=== PATIENT | female | born 1995 | race American Indian/Alaskan Native ===

== ENCOUNTER 2020-05-31 09:22 | Emergency (ER) | payer MEDICAID ==
[2020-05-31] MEDS ORDERED: ACETAMINOPHEN 500 MG TAB PO ONE (11:54)
--- NOTE | 2020-05-31 11:54 | Emergency Department Report ---
ED General Adult HPI - General Chief complaint: Back Pain/Injury Stated complaint: BACK PAIN Time Seen by Provider: 05/31/20 11:08 Source: patient Mode of arrival: Ambulatory Limitations: No Limitations - History of Present Illness Initial comments: 25-year-old -Beninese female presents to the emergency room complaining of a knot between her gluteal cleft x1 week. Patient states she has been taking Tylenol Cassidy aspirin using wintergreen today then to help with her discomfort. Patient states that she works for [employer] and not sure if she pulled her back. Patient states it is difficult to sleep. Patient also question if the medication I give for her will be safe for . Patient informed me that she is but has no care. Patient reports her last menstrual period was sometime in January. Patient denies any abdominal pain no vaginal bleeding. Patient states that she has not even had a ultrasound. She states that the OB she is supposed to 10 to is in [place] but every time she goes the doctor is not available. Patient is 1. - Related Data Previous Rx's Medication Instructions Recorded Last Taken Type Ibuprofen [Motrin 800 MG tab] 800 mg PO Q8HR PRN #15 tablet 05/31/20 Unknown Rx Sulfamethoxazole/Trimethoprim 1 each PO BID 10 Days #20 tablet 05/31/20 Unknown Rx [Bactrim DS TAB] Allergies Allergy/AdvReac Type Severity Reaction Status Date / Time pollen extracts AdvReac Unknown Verified 05/31/20 09:33 ED Review of Systems ROS: Stated complaint: BACK PAIN Other details as noted in HPI Comment: All other systems reviewed and negative ED Past Medical Hx - Past Medical History Previous Medical History?: No - Surgical History Past Surgical History?: No - Social History Smoking Status: Never Smoker Substance Use Type: None - Medications Home Medications: Home Medications Medication Instructions Recorded Confirmed Last Taken Type Ibuprofen [Motrin 800 MG tab] 800 mg PO Q8HR PRN #15 tablet 05/31/20 Unknown Rx Sulfamethoxazole/Trimethoprim 1 each PO BID 10 Days #20 tablet 05/31/20 Unknown Rx [Bactrim DS TAB] ED Physical Exam - General Limitations: No Limitations General appearance: alert, in no apparent distress - Head Head exam: Present: atraumatic, normocephalic - Eye Eye exam: Present: normal appearance - ENT ENT exam: Present: normal exam, normal external ear exam - Neck Neck exam: Present: normal inspection - Respiratory Respiratory exam: Present: normal lung sounds bilaterally. Absent: chest wall tenderness, accessory muscle use - Cardiovascular Cardiovascular Exam: Present: regular rate - GI/Abdominal GI/Abdominal exam: Present: soft, distended, other. Absent: tenderness, guarding, rebound - Extremities Exam Extremities exam: Present: normal inspection, full ROM - Back Exam Back exam: Present: full ROM, tenderness - Neurological Exam Neurological exam: Present: alert, oriented X3 - Psychiatric Psychiatric exam: Present: normal affect, normal mood - Skin Skin exam: Present: erythema - Expanded Skin Exam Expanded Type of lesion: Present: rash Distribution of rash: other (Gluteal cleft right and left) Description of rash: Present: tenderness, erythematous, swelling, indurated. Absent: discharge, fluctuant ED Course Vital Signs 05/31/20 05/31/20 09:31 14:07 Temperature 99 F Pulse Rate 97 H Respiratory 20 18 Rate Blood Pressure 126/64 O2 Sat by Pulse 100 100 Oximetry ED Medical Decision Making - Lab Data Result diagrams: 05/31/20 13:51 05/31/20 13:51 Laboratory Tests 05/31/20 05/31/20 05/31/20 13:51 13:51 13:51 WBC 13.6 H RBC 4.04 Hgb 11.6 Hct 34.6 MCV 86 MCH 29 MCHC 34 RDW 13.6 Plt Count 382 Lymph % (Auto) 5.7 L [place] % (Auto) 7.2 Eos % (Auto) 0.4 Baso % (Auto) 0.2 Lymph # (Auto) 0.8 L [place] # (Auto) 1.0 H Eos # (Auto) 0.0 Baso # (Auto) 0.0 Seg Neutrophils % 86.5 H Seg Neutrophils # 11.8 H Sodium 133 L Potassium 4.1 Chloride 98.2 Carbon Dioxide 24 Anion Gap 15 BUN 7 Creatinine 0.8 Estimated GFR > 60 BUN/Creatinine Ratio 9 Glucose 81 Calcium 8.6 Total Bilirubin 0.40 AST 8 ALT 7 Alkaline Phosphatase 73 Total Protein 7.2 Albumin 3.4 L Albumin/Globulin Ratio 0.9 HCG, Quant < 2 - Radiology Data Radiology results: report reviewed [facility] [address] [place] [address] Ultrasound Report Signed Patient: CECY WICK MR#: [id number] : 1995 Acct:[id number] Age/Sex: 25 / F ADM Date: 05/31/20 Loc: ED Attending Dr: Ordering Physician: ALMA LANDRUM Date of Service: 05/31/20 Procedure(s): US OB >= 14 wk fetus add gest Accession Number(s): [id number] cc: ALMA LANDRUM US OB >= 14 wk fetus add gest INDICATION / CLINICAL INFORMATION: Greater than 14 weeks with no ca. COMPARISON: None available. FINDINGS: There is no evidence of an intrauterine . The uterus is normal in size and appearance. The endometrium measures 4 mm. Both ovaries are unremarkable in appearance. No free fluid is seen in the pelvis. IMPRESSION: No intrauterine identified. No abnormality is seen on this exam Signer Name: Keon Burgos MD FACR Signed: 05/31/2020 1:17 PM Workstation Name: [id number] Transcribed By: MS Dictated By: Keon Burgos MD Electronically Authenticated By: Keon Burgos MD Signed Date/Time: 05/31/201316 DD/ 15 TD/TT: - Medical Decision Making 25-year-old -Beninese female presents to the emergency room complaining of a knot between her gluteal cleft x1 week. Patient states she has been taking Tylenol Cassidy aspirin using wintergreen today then to help with her discomfort. Patient states that she works for [employer] and not sure if she pulled her back. Patient states it is difficult to sleep. Patient also question if the medication I give for her will be safe for . Patient informed me that she is but has no care. Patient reports her last menstrual period was sometime in January. Patient denies any abdominal pain no vaginal bleeding. Patient states that she has not even had a ultrasound. She states that the OB she is supposed to 10 to is in [place] but every time she goes the doctor is not available. Patient is 1. Basic labs were ordered for patient. Ultrasound greater than 14 weeks have been ordered. Acetaminophen 1000 mg have been ordered for pain management. Critical care attestation.: If time is entered above; I have spent that time in minutes in the direct care of this critically ill patient, excluding procedure time. ED Disposition Clinical Impression: Negative test, Cellulitis and abscess of buttock, Lower back pain Disposition: - TO HOME OR SELFCARE Is pt being admited?: No Does the pt Need Aspirin: No Condition: Stable Instructions: Cellulitis, Adult, Acute Back Pain, Adult Additional Instructions: You are not . Ultrasound shows no . Negative test. Complete antibiotics Tylenol ibuprofen as needed for pain. Prescriptions: Sulfamethoxazole/Trimethoprim [Bactrim DS TAB] 1 each PO BID 10 Days #20 tablet Ibuprofen [Motrin 800 MG tab] 800 mg PO Q8HR PRN #15 tablet PRN Reason: Pain , Severe (7-10) Referrals: PRIMARY CARE, [Primary Care Provider] - 3-5 Days [facility] [Provider Group] - 3-5 Days
[2020-05-31 14:13] LABS: Basophils % (Auto) 0.2 % (0.0-1.8); Eosinophils % (Auto) 0.4 % (0.0-4.3); Hematocrit 34.6 % (30.3-42.9); Hemoglobin 11.6 gm/dl (10.1-14.3); Lymphocytes # (Auto) 0.8 K/mm3 (1.2-5.4); Lymphocytes % (Auto) 5.7 % (13.4-35.0); Mean Corpuscular HGB Conc 34 % (30-34); Mean Corpuscular Volume 86 fl (79-97); Monocytes % (Auto) 7.2 % (0.0-7.3); Platelet Count 382 K/mm3 (140-440); Red Blood Count 4.04 M/mm3 (3.65-5.03); Red Cell Distribution Width 13.6 % (13.2-15.2)
[2020-05-31 14:31] LABS: Alanine Aminotransferase 7 units/L (7-56); Albumin 3.4 g/dL (3.9-5); BUN/Creatinine Ratio 9; Blood Urea Nitrogen 7 mg/dL (7-17); Calcium 8.6 mg/dL (8.4-10.2); Hemolysis Index 0
[2020-05-31 15:58] VITALS: BP 101/38
--- NOTE | 2020-06-01 08:06 | Ultrasound Report ---
US OB >= 14 wk fetus add gest INDICATION / CLINICAL INFORMATION: Greater than 14 weeks with no ca. COMPARISON: None available. FINDINGS: There is no evidence of an intrauterine . The uterus is normal in size and appearance. The e ndometrium measures 4 mm. Both ovaries are unremarkable in appearance. No free fluid is seen in the p devora. IMPRESSION: No intrauterine identified. No abnormality is seen on this exam Signer Name: Keon Burgos MD FACR Signed: 05/31/2020 1:17 PM Workstation Name: [id number]
== END 2020-05-31 16:00 | disposition home or self-care (01) ==
LOC: ED 09:22
DX: L03.317 Cellulitis of buttock (principal); M54.5 Low back pain; Z32.02 Encounter for pregnancy test, result negative; Z79.1 Long term (current) use of non-steroidal anti-inflammatories (NSAID); Z79.899 Other long term (current) drug therapy; Z88.8 Allergy status to other drugs, medicaments and biological substances
CPT/HCPCS: 36415; 76810; 76817; 76830; 80053; 84702; 85025

== ENCOUNTER 2020-11-13 16:37 | Emergency (ER) | payer MEDICAID ==
--- NOTE | 2020-11-13 17:18 | Emergency Department Report ---
ED Female HPI - General Chief complaint: Vaginal Bleeding Stated complaint: 8 WKS PREG Time Seen by Provider: 11/13/20 17:05 Source: patient Mode of arrival: Ambulatory Limitations: No Limitations - History of Present Illness Initial comments: Patient presents secondary to vaginal bleeding. She is 8 weeks gestation. She is a G1, P0. She noticed that when she went to the bathroom and wiped, she had blood on the tissue. There is no pain or cramping associated with this. There is no bleeding from other sites. She has not had an ultrasound for this . 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 Because the spotting, she came here for evaluation. - Related Data Previous Rx's Medication Instructions Recorded Last Taken Type Ibuprofen [Motrin 800 MG tab] 800 mg PO Q8HR PRN #15 tablet 05/31/20 Unknown Rx Sulfamethoxazole/Trimethoprim 1 each PO BID 10 Days #20 tablet 05/31/20 Unknown Rx [Bactrim DS TAB] Allergies Allergy/AdvReac Type Severity Reaction Status Date / Time pollen extracts AdvReac Unknown Verified 05/31/20 09:33 ED Review of Systems ROS: Stated complaint: 8 WKS PREG Other details as noted in HPI Comment: All other systems reviewed and negative Constitutional: denies: fever Eyes: denies: vision change ENT: denies: throat pain Respiratory: denies: cough Cardiovascular: denies: chest pain Endocrine: denies: unexplained weight loss Gastrointestinal: denies: abdominal pain Genitourinary: as per HPI. denies: hematuria Musculoskeletal: denies: back pain Skin: denies: rash Neurological: denies: headache Hematological/Lymphatic: denies: easy bruising ED Past Medical Hx - Past Medical History Previous Medical History?: No - Surgical History Past Surgical History?: No - Family History Family history: no significant - Social History Smoking Status: Never Smoker Substance Use Type: None - Medications Home Medications: Home Medications Medication Instructions Recorded Confirmed Last Taken Type Ibuprofen [Motrin 800 MG tab] 800 mg PO Q8HR PRN #15 tablet 05/31/20 Unknown Rx Sulfamethoxazole/Trimethoprim 1 each PO BID 10 Days #20 tablet 05/31/20 Unknown Rx [Bactrim DS TAB] ED Physical Exam - General Limitations: No Limitations, Other (Pulse ox is noted and normal she is not hypoxic.) General appearance: alert, in no apparent distress - Head Head exam: Present: atraumatic, normocephalic, normal inspection - Eye Eye exam: Present: normal appearance, EOMI. Absent: scleral icterus - ENT ENT exam: Present: normal exam, normal orophraynx, normal external ear exam - Neck Neck exam: Present: normal inspection. Absent: meningismus - Respiratory Respiratory exam: Present: normal lung sounds bilaterally. Absent: respiratory distress - Cardiovascular Cardiovascular Exam: Present: regular rate, normal rhythm - GI/Abdominal GI/Abdominal exam: Present: soft. Absent: distended, tenderness - Extremities Exam Extremities exam: Present: normal capillary refill. Absent: pedal edema - Back Exam Back exam: Absent: CVA tenderness (R), CVA tenderness (L) - Neurological Exam Neurological exam: Present: alert, oriented X3, CN II-XII intact, normal gait. Absent: motor sensory deficit - Psychiatric Psychiatric exam: Present: normal affect, normal mood - Skin Skin exam: Present: warm, dry ED Course Vital Signs 11/13/20 16:49 Temperature 99 F Pulse Rate 100 H Respiratory 16 Rate Blood Pressure 114/63 [Left] O2 Sat by Pulse 100 Oximetry - Reevaluation(s) Reevaluation #1: 11/13/20 17:18 Labs and ultrasound were ordered Reevaluation #2: 11/13/20 20:54 Ultrasound was noted and the patient was discharged. ED Medical Decision Making - Lab Data Result diagrams: 11/13/20 17:33 - Radiology Data Radiology results: report reviewed - Medical Decision Making Patient presented with first trimester bleeding. There was no evidence of ectopic. She is not anemic. She is not hypotensive. Ultrasound has been completed. She does not require RhoGam. Patient was treated symptomatically at this time and referred to her middle school football coach. We have discussed pelvic rest. Critical Care Time: No Critical care attestation.: If time is entered above; I have spent that time in minutes in the direct care of this critically ill patient, excluding procedure time. ED Disposition Clinical Impression: Vaginal bleeding before 22 weeks gestation Disposition: HOME / SELF CARE / HOMELESS Is pt being admited?: No Condition: Stable Instructions: Vaginal Bleeding During , First Trimester Additional Instructions: Rest at home. Drink plenty of water. Return for problems. Do not introduce anything into the vagina until you have seen your middle school football coach. Referrals: PRIMARY CARE, [Referring] - 3-5 Days SIOBHAN HARKINS MD [Staff Physician] - 3-5 Days
[2020-11-13 18:18] LABS: Hematocrit 34.5 % (30.3-42.9); Hemoglobin 11.7 gm/dl (10.1-14.3); Mean Corpuscular HGB Conc 34 % (30-34); Mean Corpuscular Volume 86 fl (79-97); Platelet Count 432 K/mm3 (140-440); Red Blood Count 4.01 M/mm3 (3.65-5.03); Red Cell Distribution Width 14.5 % (13.2-15.2)
--- NOTE | 2020-11-13 20:26 | Ultrasound Report ---
ULTRASOUND OBSTETRIC INDICATION / CLINICAL INFORMATION: bleeding. Clinical Gestational Age (GA) in weeks, days: 7, 6 TECHNIQUE: Transabdominal. COMPARISON: None available. FINDINGS: GESTATIONAL SAC: Well-defined oval shape and intrauterine in location. YOLK SAC: No significant abnormality. EMBRYO/FETUS: No significant abnormality. - [place]-Rump Length = 3.4 cm = 8, 4 weeks, days - Heart Rate, beats per minute (if present) = 180 ADNEXA: Nonvisualization of the left ovary. The right ovary is unremarkable. FREE FLUID: None. ADDITIONAL FINDINGS: None. IMPRESSION: 1. Single, living intrauterine with estimated sonographic age of 8, 0 weeks, days. h eart tones are measured at 180 bpm. Signer Name: Jarad Medrano DO Signed: 11/13/2020 8:22 PM Workstation Name: [id number]
[2020-11-13 21:04] VITALS: BP 120/80
== END 2020-11-13 21:05 | disposition home or self-care (01) ==
LOC: ED 16:37
DX: O20.9 Hemorrhage in early pregnancy, unspecified (principal); Z3A.08 8 weeks gestation of pregnancy
CPT/HCPCS: 36415; 76801; 85027; 85461; 86850; 86900; 86901; 99284

== ENCOUNTER 2021-01-29 17:22 | Emergency (ER) | payer MEDICAID ==
--- NOTE | 2021-01-29 18:12 | Emergency Department Report ---
ED Abdominal Pain HPI - General Chief Complaint: Abdominal Pain Stated Complaint: ABD PAIN Time Seen by Provider: 01/29/21 18:06 Source: patient Mode of arrival: Ambulatory Limitations: No Limitations - History of Present Illness Initial Comments: Patient is a 26-year-old female presents emergency room complaints of lower abdominal pain that began 2 days ago. She reports that she is approximately 19 weeks . She states her [employer] group is in [place] and is associated with [place]. She denies any fever, nausea, vomiting, diarrhea, urinary symptoms, vaginal discharge, vaginal bleeding, gush of fluids. She states this is her first . No medication allergies. - Related Data Previous Rx's Medication Instructions Recorded Last Taken Type Ibuprofen [Motrin 800 MG tab] 800 mg PO Q8HR PRN #15 tablet 05/31/20 Unknown Rx Sulfamethoxazole/Trimethoprim 1 each PO BID 10 Days #20 tablet 05/31/20 Unknown Rx [Bactrim DS TAB] Acetaminophen [Tylenol] 650 mg PO Q8HR PRN #20 capsule 01/29/21 Unknown Rx cephALEXin [Keflex] 500 mg PO BID 7 Days #14 cap 01/29/21 Unknown Rx Allergies Allergy/AdvReac Type Severity Reaction Status Date / Time pollen extracts AdvReac Unknown Verified 05/31/20 09:33 ED Review of Systems ROS: Stated complaint: ABD PAIN Other details as noted in HPI Comment: All other systems reviewed and negative ED Past Medical Hx - Past Medical History Previous Medical History?: No - Surgical History Past Surgical History?: No - Social History Smoking Status: Never Smoker Substance Use Type: None - Medications Home Medications: Home Medications Medication Instructions Recorded Confirmed Last Taken Type Ibuprofen [Motrin 800 MG tab] 800 mg PO Q8HR PRN #15 tablet 05/31/20 Unknown Rx Sulfamethoxazole/Trimethoprim 1 each PO BID 10 Days #20 tablet 05/31/20 Unknown Rx [Bactrim DS TAB] Acetaminophen [Tylenol] 650 mg PO Q8HR PRN #20 capsule 01/29/21 Unknown Rx cephALEXin [Keflex] 500 mg PO BID 7 Days #14 cap 01/29/21 Unknown Rx ED Physical Exam - General Limitations: No Limitations General appearance: alert, in no apparent distress - Head Head exam: Present: atraumatic, normocephalic - Eye Eye exam: Present: normal appearance - ENT ENT exam: Present: mucous membranes moist - Respiratory Respiratory exam: Present: normal lung sounds bilaterally. Absent: respiratory distress, wheezes, rales, rhonchi, stridor, chest wall tenderness, accessory muscle use, decreased breath sounds, prolonged expiratory - Cardiovascular Cardiovascular Exam: Present: regular rate, normal rhythm, normal heart sounds. Absent: systolic murmur, diastolic murmur, rubs, gallop - GI/Abdominal GI/Abdominal exam: Present: soft, normal bowel sounds. Absent: distended, tenderness, guarding, rebound, rigid - Neurological Exam Neurological exam: Present: alert, oriented X3 - Psychiatric Psychiatric exam: Present: normal affect, normal mood - Skin Skin exam: Present: warm, dry, intact ED Course Vital Signs 01/29/21 01/29/21 17:27 20:40 Temperature 98.5 F Pulse Rate 96 H 82 Respiratory 20 16 Rate Blood Pressure 102/57 114/57 O2 Sat by Pulse 97 100 Oximetry ED Medical Decision Making - Lab Data Result diagrams: 01/29/21 19:00 01/29/21 19:00 Lab Results 01/29/21 01/29/21 01/29/21 Range/Units 18:19 19:00 19:00 WBC 8.7 (4.5-11.0) K/mm3 RBC 3.67 (3.65-5.03) M/mm3 Hgb 10.4 (10.1-14.3) gm/dl Hct 32.4 (30.3-42.9) % MCV 88 (79-97) fl MCH 28 (28-32) pg MCHC 32 (30-34) % RDW 14.3 (13.2-15.2) % Plt Count 386 (140-440) K/mm3 Lymph % (Auto) 20.0 (13.4-35.0) % [place] % (Auto) 5.5 (0.0-7.3) % Eos % (Auto) 1.4 (0.0-4.3) % Baso % (Auto) 0.3 (0.0-1.8) % Lymph # (Auto) 1.7 (1.2-5.4) K/mm3 [place] # (Auto) 0.5 (0.0-0.8) K/mm3 Eos # (Auto) 0.1 (0.0-0.4) K/mm3 Baso # (Auto) 0.0 (0.0-0.1) K/mm3 Seg Neutrophils % 72.8 H (40.0-70.0) % Seg Neutrophils # 6.3 (1.8-7.7) K/mm3 Sodium 137 (137-145) mmol/L Potassium 4.2 (3.6-5.0) mmol/L Chloride 101.8 (98-107) mmol/L Carbon Dioxide 22 (22-30) mmol/L Anion Gap 17 mmol/L BUN 6 L (7-17) mg/dL Creatinine 0.5 L (0.6-1.2) mg/dL Estimated GFR > 60 ml/min BUN/Creatinine Ratio 12 % Glucose 80 (65-100) mg/dL Calcium 8.9 (8.4-10.2) mg/dL Total Bilirubin < 0.20 (0.1-1.2) mg/dL AST 24 (5-40) units/L ALT 42 (7-56) units/L Alkaline Phosphatase 74 (35-129) units/L Total Protein 6.4 (6.3-8.2) g/dL Albumin 3.8 L (3.9-5) g/dL Albumin/Globulin Ratio 1.5 % HCG, Quant (0-4) mIU/mL Urine Color Straw (Yellow) Urine Turbidity Clear (Clear) Urine pH 6.0 (5.0-7.0) Ur Specific [place] 1.004 (1.003-1.030) Urine Protein <15 mg/dl (Negative) mg/dL Urine Glucose (UA) Neg (Negative) mg/dL Urine Ketones Neg (Negative) mg/dL Urine Blood Neg (Negative) Urine Nitrite Neg (Negative) Urine Bilirubin Neg (Negative) Urine Urobilinogen < 2.0 (<2.0) mg/dL Ur Leukocyte Esterase Mod (Negative) Urine WBC (Auto) 12.0 H (0.0-6.0) /HPF Urine RBC (Auto) < 1.0 (0.0-6.0) /HPF U Epithel Cells (Auto) 5.0 (0-13.0) /HPF Urine Yeast (Budding) Few /HPF 01/29/ Range/Units 19:00 WBC (4.5-11.0) K/mm3 RBC (3.65-5.03) M/mm3 Hgb (10.1-14.3) gm/dl Hct (30.3-42.9) % MCV (79-97) fl MCH (28-32) pg MCHC (30-34) % RDW (13.2-15.2) % Plt Count (140-440) K/mm3 Lymph % (Auto) (13.4-35.0) % [place] % (Auto) (0.0-7.3) % Eos % (Auto) (0.0-4.3) % Baso % (Auto) (0.0-1.8) % Lymph # (Auto) (1.2-5.4) K/mm3 [place] # (Auto) (0.0-0.8) K/mm3 Eos # (Auto) (0.0-0.4) K/mm3 Baso # (Auto) (0.0-0.1) K/mm3 Seg Neutrophils % (40.0-70.0) % Seg Neutrophils # (1.8-7.7) K/mm3 Sodium (137-145) mmol/L Potassium (3.6-5.0) mmol/L Chloride (98-107) mmol/L Carbon Dioxide (22-30) mmol/L Anion Gap mmol/L BUN (7-17) mg/dL Creatinine (0.6-1.2) mg/dL Estimated GFR ml/min BUN/Creatinine Ratio % Glucose (65-100) mg/dL Calcium (8.4-10.2) mg/dL Total Bilirubin (0.1-1.2) mg/dL AST (5-40) units/L ALT (7-56) units/L Alkaline Phosphatase (35-129) units/L Total Protein (6.3-8.2) g/dL Albumin (3.9-5) g/dL Albumin/Globulin Ratio % HCG, Quant 27558 H (0-4) mIU/mL Urine Color (Yellow) Urine Turbidity (Clear) Urine pH (5.0-7.0) Ur Specific [place] (1.003-1.030) Urine Protein (Negative) mg/dL Urine Glucose (UA) (Negative) mg/dL Urine Ketones (Negative) mg/dL Urine Blood (Negative) Urine Nitrite (Negative) Urine Bilirubin (Negative) Urine Urobilinogen (<2.0) mg/dL Ur Leukocyte Esterase (Negative) Urine WBC (Auto) (0.0-6.0) /HPF Urine RBC (Auto) (0.0-6.0) /HPF U Epithel Cells (Auto) (0-13.0) /HPF Urine Yeast (Budding) /HPF - Radiology Data Radiology results: report reviewed Ordering Physician: ALMA WILEY Date of Service: 01/29/21 Procedure(s): US OB >= 14 weeks Fetus Accession Number(s): [id number] cc: ALMA WILEY ULTRASOUND OBSTETRIC INDICATION / CLINICAL INFORMATION: abd pain, . TECHNIQUE: Transabdominal. COMPARISON: 11/13/2020 FINDINGS: There is a single intrauterine . Biparietal Diameter = 4.59 cm = 19.6 weeks.days Head Circumference = 16.82 cm = 19.3 weeks.days Abdominal Circumference = 10.10 cm = 16.1 weeks.days Femur Length = 2.83 cm = 18.5 weeks.days Average Ultrasound Age (AUA) = 18.4 weeks.days Heart Rate: 155 beats per minute. Estimated Weight in grams (if calculated): 202 Estimated Weight Growth Percentile (if calculated): 3 Position: breech. Cervix: closed. Length in cm (if measured): 2.4 Placenta: maternal right and free of the os. Amniotic Fluid Volume: normal Maternal Adnexa: No significant abnormality. IMPRESSION: 1. Single, living intrauterine with estimated sonographic age of 18.4 weeks.days 2. No significant sonographic abnormality. Signer Name: Poncho Deluca MD Signed: 01/29/2021 8:04 PM Workstation Name: [id number] Transcribed By: ARIANA Dictated By: Poncho Deluca MD Electronically Authenticated By: Poncho Deluca MD Signed Date/Time: 01/29/212003 DD/ 01 TD/TT: - Medical Decision Making Patient is a 26-year-old female presents emergency room complaints of lower abdominal pain that began 2 days ago. She reports that she is approximately 19 weeks . She states her [employer] group is in [place] and is associated with [place]. She denies any fever, nausea, vomiting, diarrhea, urinary symptoms, vaginal discharge, vaginal bleeding, gush of fluids. She states this is her first . No medication allergies. Vitals are normal. No abdominal tenderness [place] [address], otherwise labs are stable. UA shows mild UTI. OB ultrasound: 1. Single, living intrauterine with estimated sonographic age of 18.4 weeks.days 2. No significant sonographic abnormality. Discussed all findings with patient. Patient reports that Tylenol improved her pain and she is feeling much better and ready to go home. Discussed the importance of [employer] follow-up. Advised patient Please take medication as prescribed. Increase your water intake. Please practice pelvic rest. Please continue taking her vitamin. Follow-up with [employer]. Return to emergency room for any new or worsening symptoms. Critical care attestation.: If time is entered above; I have spent that time in minutes in the direct care of this critically ill patient, excluding procedure time. ED Disposition Clinical Impression: Abdominal pain in Qualifiers: Trimester: second trimester Qualified Code(s): O26.892 - Other specified related conditions, second trimester UTI (urinary tract infection) Qualifiers: Urinary tract infection type: acute cystitis Hematuria presence: without hematuria Qualified Code(s): N30.00 - Acute cystitis without hematuria Disposition: HOME / SELF CARE / HOMELESS Is pt being admited?: No Does the pt Need Aspirin: No Condition: Stable Instructions: Urinary Tract Infection, Adult, Abdominal Pain During , Abdominal Pain (ED) Additional Instructions: Please take medication as prescribed. Increase your water intake. Please practice pelvic rest. Please continue taking her vitamin. Follow-up with [employer]. Return to emergency room for any new or worsening symptoms. Prescriptions: cephALEXin [Keflex] 500 mg PO BID 7 Days #14 cap Acetaminophen [Tylenol] 650 mg PO Q8HR PRN #20 capsule PRN Reason: pain Referrals: your, granulator [Other] - 3-5 Days Time of Disposition: 20:18 Print Language: UGAND[place]
[2021-01-29] MEDS ORDERED: ACETAMINOPHEN 325 MG TAB PO ONE (18:19)
[2021-01-29 18:30] LABS: Bilirubin,Urine NEG (Negative); Blood,Urine NEG (Negative); Color,Urine Straw (Yellow); Protein,Urine <15 mg/dL mg/dL (Negative); RBC,Urine < 1.0 /HPF (0.0-6.0); Urobilinogen,Urine < 2.0 mg/dL (<2.0)
[2021-01-29 19:25] LABS: Basophils % (Auto) 0.3 % (0.0-1.8); Eosinophils # (Auto) 0.1 K/mm3 (0.0-0.4); Eosinophils % (Auto) 1.4 % (0.0-4.3); Hematocrit 32.4 % (30.3-42.9); Hemoglobin 10.4 gm/dl (10.1-14.3); Lymphocytes # (Auto) 1.7 K/mm3 (1.2-5.4); Mean Corpuscular HGB Conc 32 % (30-34); Mean Corpuscular Volume 88 fl (79-97); Monocytes # (Auto) 0.5 K/mm3 (0.0-0.8); Monocytes % (Auto) 5.5 % (0.0-7.3); Platelet Count 386 K/mm3 (140-440); Red Blood Count 3.67 M/mm3 (3.65-5.03); Red Cell Distribution Width 14.3 % (13.2-15.2)
[2021-01-29 19:33] LABS: Alanine Aminotransferase 42 units/L (7-56); Albumin 3.8 g/dL (3.9-5); Blood Urea Nitrogen 6 mg/dL (7-17); Calcium 8.9 mg/dL (8.4-10.2); Hemolysis Index 7
[2021-01-29 19:34] LABS: BUN/Creatinine Ratio 12
--- NOTE | 2021-01-29 20:08 | Ultrasound Report ---
ULTRASOUND OBSTETRIC INDICATION / CLINICAL INFORMATION: abd pain, . TECHNIQUE: Transabdominal. COMPARISON: 11/13/2020 FINDINGS: There is a single intrauterine . Biparietal Diameter = 4.59 cm = 19.6 weeks.days Head Circumference = 16.82 cm = 19.3 weeks.days Abdominal Circumference = 10.10 cm = 16.1 weeks.days Femur Length = 2.83 cm = 18.5 weeks.days Average Ultrasound Age (AUA) = 18.4 weeks.days Heart Rate: 155 beats per minute. Estimated Weight in grams (if calculated): 202 Estimated Weight Growth Percentile (if calculated): 3 Position: breech. Cervix: closed. Length in cm (if measured): 2.4 Placenta: maternal right and free of the os. Amniotic Fluid Volume: normal Maternal Adnexa: No significant abnormality. IMPRESSION: 1. Single, living intrauterine with estimated sonographic age of 18.4 weeks.days 2. No significant sonographic abnormality. Signer Name: Poncho Deluca MD Signed: 01/29/2021 8:04 PM Workstation Name: [id number]
[2021-01-29 20:42] VITALS: BP 114/57
== END 2021-01-29 20:00 | disposition home or self-care (01) ==
LOC: ED 17:22
DX: O26.892 Other specified pregnancy related conditions, second trimester (principal); O23.42 Unspecified infection of urinary tract in pregnancy, second trimester; R10.9 Unspecified abdominal pain; N39.0 Urinary tract infection, site not specified; Z91.018 Allergy to other foods; Z79.899 Other long term (current) drug therapy; Z3A.18 18 weeks gestation of pregnancy
CPT/HCPCS: 36415; 76805; 80053; 81001; 84702; 85025; 87086; 99284

== ENCOUNTER 2021-06-16 21:29 | Inpatient (IN) | payer MEDICAID ==
[2021-06-16] MEDS ORDERED: TERBUTALINE 1 MG/1 ML INJ ONE (22:13)
--- NOTE | 2021-06-16 22:16 | History and Physical Report ---
History of Present Illness Date of examination: 06/16/21 Date of admission: 06/16/2021 Chief complaint: Contractions History of present illness: 26-year-old primigravida at 38-4/7 weeks gestation presents to OB triage reporting contractions. The contractions are mild to moderate in nature with regards to pain. They are somewhat regular. There is no vaginal bleeding. There is no leakage of fluid. The patient receives care at [facility]. She states that she was scheduled for a primary delivery on June 22, 2021 as her fetus was breech. Today, in OB triage, cervical exam was 4 cm dilated. Bedside ultrasound by me revealed fetus with breech presentation. Past History Past Medical History: no pertinent history Past Surgical History: no surgical history Family/Genetic History: none Social history: no significant social history - Obstetrical History Expected Date of Delivery: 06/26/21 Actual Gestation: 38 Week(s) 5 Day(s) : 1 Para: 0 Medications and Allergies Allergies Allergy/AdvReac Type Severity Reaction Status Date / Time pollen extracts AdvReac Unknown Verified 05/31/20 09:33 Home Medications Medication Instructions Recorded Confirmed Last Taken Type Ibuprofen [Motrin 800 MG tab] 800 mg PO Q8HR PRN #15 tablet 05/31/20 Unknown Rx Sulfamethoxazole/Trimethoprim 1 each PO BID 10 Days #20 tablet 05/31/20 Unknown Rx [Bactrim DS TAB] Acetaminophen [Tylenol] 650 mg PO Q8HR PRN #20 capsule 01/29/21 Unknown Rx cephALEXin [Keflex] 500 mg PO BID 7 Days #14 cap 01/29/21 Unknown Rx Review of Systems All systems: negative - Vital Signs Vital signs: Vital Signs Pulse BP 90 139/82 06/16/21 22:08 06/16/21 22:08 Temp Pulse Resp BP Pulse Ox 90 139/82 06/16/21 22:08 06/16/21 22:08 - Physical Exam Breasts: Positive: normal Cardiovascular: Regular rate Lungs: Positive: Normal air movement Abdomen: Positive: normal appearance Genitourinary (Female): Positive: normal external genitalia, normal perenium Vulva: both: normal Vagina: Positive: normal moisture Uterus: Positive: enlarged Adnexa: both: normal Anus/Rectum: Positive: normal perianal skin Deep Tendon Reflex Grade: Normal +2 - Obstetrical FHR: category 1 Uterine Contraction Monitor Mode: External Cervical Dilatation: 4.5 Cervical Effacement Percentage: 70 station: -2 Uterine Contraction Frequency (min): 6 Results Result Diagrams: 06/16/21 22:57 All other labs normal. ROM plus is negative. Ultrasound: report reviewed (Fetus is in the breech position. Amniotic fluid index is consistent with oligohydramnios.) Assessment and Plan - Patient Problems (1) 38 weeks gestation of Current Visit: Yes Status: Acute Plan to address problem: care is up-to-date at [facility]. (2) Encounter for maternal care for breech presentation in tello Current Visit: Yes Status: Acute Plan to address problem: position confirmed to be breech. Right delivery will be primary delivery. (3) Oligohydramnios in third trimester Current Visit: Yes Status: Acute Plan to address problem: Etiology is unknown. However, it is most likely to be tumor to the aging nature of the placenta at this gestational age. ROM plus is negative. As such, premature rupture membranes was ruled out. (4) Spontaneous onset of labor after 37 but before 39 completed weeks gestation with delivery by planned section Current Visit: Yes Status: Acute Plan to address problem: The patient is in early labor because she is below 6 cm dilated. As fetus is breech and this patient is in early labor, I recommend primary delivery. The risks, alternatives, and benefits were explained to the patient. She voiced understanding. She wished to proceed with delivery. Operating room team to be mobilized. Anesthesia to be notified.
[2021-06-16] MEDS ORDERED: AZITHROMYCIN/NS 500 MG/250 ML 500 MG/250 ML BAG IV ONE (22:17)
[2021-06-16] MEDS ORDERED: FAMOTIDINE 20 MG/2 ML INJ IV ONE (22:17)
[2021-06-16] MEDS ORDERED: BICITRA ORAL LIQD 30ML PO ONE (22:17)
[2021-06-16] MEDS ORDERED: METOCLOPRAMIDE 10 MG/2 ML INJ IV ONE (22:17)
[2021-06-16] MEDS ORDERED: TERBUTALINE 1 MG/1 ML INJ SUB-Q STA (22:21)
[2021-06-16] MEDS ORDERED: LACTATED RINGERS 1,000 ML IV SCH (22:30)
[2021-06-16] MEDS ORDERED: ceFAZolin/Water 2 GM/20 ML 2 GM/20 ML SYRINGE IV NR (23:00)
[2021-06-16 23:16] LABS: Basophils # (Auto) 0.1 K/mm3 (0.0-0.1); Basophils % (Auto) 0.7 % (0.0-1.8); Eosinophils % (Auto) 0.5 % (0.0-4.3); Hematocrit 32.6 % (30.3-42.9); Hemoglobin 10.5 gm/dl (10.1-14.3); Lymphocytes # (Auto) 1.8 K/mm3 (1.2-5.4); Lymphocytes % (Auto) 22.7 % (13.4-35.0); Mean Corpuscular HGB Conc 32 % (30-34); Mean Corpuscular Volume 86 fl (79-97); Monocytes # (Auto) 0.5 K/mm3 (0.0-0.8); Monocytes % (Auto) 6.6 % (0.0-7.3); Platelet Count 399 K/mm3 (140-440); Red Blood Count 3.78 M/mm3 (3.65-5.03); Red Cell Distribution Width 14.7 % (13.2-15.2)
--- NOTE | 2021-06-16 23:46 | Ultrasound Report ---
US OB limited INDICATION / CLINICAL INFORMATION: Breech evaluation of estimated weight and amniotic fluid ind ex COMPARISON: OB ultrasound 01/29/2021 TECHNIQUE: Using a transcutaneous probe, multiple grayscale, color Doppler, and spectral Doppler imag es of the uterus and fetus were captured and stored. FINDINGS: Single breech fetus is demonstrated with heart rate 168 bpm. Oligohydramnios is present. The PEYTON measures 1.9 cm. Biparietal Diameter = 9.03 cm = 36, 4 weeks, days Head Circumference = 33.63 cm = 38, 4 weeks, days Abdominal Circumference = 33.07 cm = 37, 0 weeks, days Femur Length = 7.26 cm = 37, 1 weeks, days Average Ultrasound Age (AUA) = 37, 2 weeks, days. EDC is 07/05/2021. Clinical estimated gestational age based on LMP of 09/19/2020 is 38 weeks 4 days, EDC 06/26/2021. Estimated weight = 3031 g.. IMPRESSION: 1. Oligohydramnios with PEYTON of 1.9 cm. 2. Estimated weight 3131 g. 3. Single living breech fetus composite ultrasound estimated gestational age 37 weeks 2 days. Signer Name: Erick Ceja II, MD Signed: 06/16/2021 11:42 PM Workstation Name: [id number]
[2021-06-17] MEDS ORDERED: MAGNESIUM SULFATE 4 GM/100 ML BAG IV ONE (00:30)
--- NOTE | 2021-06-17 00:57 | Anesthesia Day of Surgery ---
Anesthesia Day of Surgery - Day of Surgery Patient Examined: Yes Patient H&P Reviewed: Yes Patient is NPO: Yes
--- NOTE | 2021-06-17 00:58 | Anesthesia Consultation ---
Anesthesia Consult and Med Hx Date of service: 06/17/21 - Airway Anesthetic Teeth Evaluation: Poor ROM Head & Neck: Adequate Mental/Hyoid Distance: Adequate Mallampati Class: Class II Intubation Access Assessment: Probably Good - Pulmonary Exam CTA: Yes - Cardiac Exam Cardiac Exam: RRR - Pre-Operative Health Status ASA Pre-Surgery Classification: ASA2 Proposed Anesthetic Plan: Spinal - Pulmonary Hx Smoking: No Hx Asthma: No Hx Respiratory Symptoms: No SOB: No COPD: No - Cardiovascular System Hx Hypertension: No - Central Nervous System Hx Neuromuscular Disorder: No Hx Seizures: No Hx Psychiatric Problems: No - Endocrine Hx Renal Disease: No Hx Cirrhosis: No Hx Liver Disease: No Hx Insulin Dependent Diabetes: No Hx Non-Insulin Dependent Diabetes: No Hx Hypothyroidism: No Hx Hyperthyroidism: No - Hematic Hx Anemia: Yes Hx Sickle Cell Disease: No - Other Systems Hx Alcohol Use: No Hx Substance Use: No Hx Obesity: Yes
[2021-06-17] MEDS ORDERED: MAGNESIUM SULFATE 40GM/1000ML 40 GM/1,000 ML BAG IV SCH (01:00)
[2021-06-17] MEDS ORDERED: OXYTOCIN DRIP 30,000 MILLIUNITS/500 ML BAG IV ONE (01:39)
[2021-06-17] MEDS ORDERED: METOCLOPRAMIDE 10 MG/2 ML INJ ONE (01:39)
[2021-06-17] MEDS ORDERED: FAMOTIDINE 20 MG/2 ML INJ IV ONE (01:39)
[2021-06-17] MEDS ORDERED: BICITRA ORAL LIQD 30ML ONE (01:40)
[2021-06-17] MEDS ORDERED: PHENYLEPHRINE/NS 1,000 MCG/10 ML SYRINGE (OR USE) IV ONE (02:18)
[2021-06-17] MEDS ORDERED: LACTATED RINGERS 1,000 ML ONE ×2 (02:21→04:08)
[2021-06-17] MEDS ORDERED: ONDANSETRON 4 MG/2 ML INJ ONE (02:21)
[2021-06-17] MEDS ORDERED: SODIUM CHLORIDE 0.9% IRR 1,500 ML BOTTLE IR ONE (02:28)
[2021-06-17] MEDS ORDERED: WATER FOR IRRIG STERILE 1,500 ML BOTTLE IR ONE (02:28)
[2021-06-17 02:30] LABS: Bacteria,Urine 1+ /HPF (Negative); Bilirubin,Urine NEG (Negative); Blood,Urine NEG (Negative); Color,Urine Yellow (Yellow); Mucus,Urine 1+ /HPF; Protein,Urine <15 mg/dL mg/dL (Negative); Urobilinogen,Urine < 2.0 mg/dL (<2.0)
[2021-06-17 02:33] LABS: Amphetamine Screen,Urine PRESUMPTIVE NEGATIVE; Benzodiazepines Screen,Urine PRESUMPTIVE NEGATIVE; Cannabinoid Screen,Urine PRESUMPTIVE NEGATIVE; Cocaine Screen,Urine PRESUMPTIVE NEGATIVE; Methadone Screen,Urine PRESUMPTIVE NEGATIVE; Opiate Screen,Urine PRESUMPTIVE NEGATIVE
[2021-06-17] MEDS ORDERED: dexAMETHasone 20 MG/5 ML VIAL ONE (04:19)
[2021-06-17] MEDS ORDERED: BUPIVACAINE/PF (0.25%) 2.5 MG/ML 30 ML VIAL INFILTRATI ONE (04:19)
--- NOTE | 2021-06-17 04:36 | Operative Report ---
Operative Report Operative Report: PREOPERATIVE DIAGNOSES: 1. Intrauterine at 38-4/7 weeks. 2. Breech presentation. 3. Active labor, POSTOPERATIVE DIAGNOSES: 1. Intrauterine at 38-4/7 weeks. 2. Breech presentation. 3. Active labor, PROCEDURE PERFORMED: Primary low-transverse delivery. SURGEON: Maged Garcia M.D. ANESTHESIA: Spinal. IV FLUIDS: 2500 mL LR. ESTIMATED BLOOD LOSS: 400 mL. URINE OUTPUT: 500 mL COMPLICATIONS: None. FINDINGS: Liveborn female. Jon breech presentation. Weight 2990 g. Apgars 8 at 1 minute and 9 at 5 minutes. INDICATIONS: The patient is a 26-year-old primigravida at 38-4/7 weeks gestation who presented to OB triage with regular and painful uterine contractions. Fetus was confirmed to be in the breech position sonographically. Cervix was 5 cm dilated. The patient progressed to 7 cm dilated with a bulging bag of whaley. The patient was offered primary low-transverse delivery. The procedure was described to the patient in detail including possible risks of bleeding, infection, injury to surrounding organs, and possible need for further surgery. Informed consent was obtained prior to proceeding with the procedure. PROCEDURE NOTE: The patient was taken to the operating room where epidural anesthesia was found to be adequate. The patient was prepped and draped in the usual sterile fashion in the dorsal supine position with a left-sanchez tilt. A Pfannenstiel skin incision was made with the scalpel and carried through to the underlying layer of fascia using the Bovie. The fascia was incised in the midline and extended laterally with meticulous care using the Bovie. Polina clamps were used to elevate the superior aspect of the fascial incision, which was elevated, and the underlying rectus muscles were dissected off using the B ovie. Attention was then turned to the inferior aspect of the fascial incision, which in similar fashion was grasped with Polina clamps, elevated, and the underlying rectus muscles were dissected off using the Bovie. The rectus muscles were dissected in the midline with the Bovie. The peritoneum was sharply dissected, entered, and extended superiorly and inferiorly using the Bovie with good visualization of the bladder. Juwan self- retaining retractor was inserted. The vesicouterine peritoneum was identified with pickups and entered sharply using Metzenbaum scissors. This incision was extended laterally with the Metzenbaum scissors and the bladder flap was created digitally. The bladder blade was reinserted. The lower uterine segment was incised in a transverse fashion using the scalpel and extended using manual traction. Membranes were artificially ruptured and meconium stained fluid was noted. Presenting part was the buttocks. Buttocks were delivered followed by the left and right legs. Anterior and posterior arms were swept across the chest and then the torso was delivered. Cmmudaipj-Muruuhr-Txvh maneuver was used to deliver the head. The was delivered atraumatically. The nose and mouth were bulb suctioned. The cord was clamped and cut. The infant was subsequently handed to the awaiting nursery nurse. Next, cord blood was obtained. The placenta was removed spontaneously intact with a 3-vessel cord noted. The uterus was kept in situ and cleared of all clots and debris. The uterine incision was repaired in 1 full-thickness layer using 0 Mo nocryl suture in a running fashion. Hemostasis was visualized. The visceral peritoneum was reapproximated using 3-0 Vicryl in a running fashion. The pelvis was copiously irrigated. The uterine incision was reexamined and was noted to be hemostatic. The parietal peritoneum was reapproximated with 3-0 Vicryl in a running fashion. The rectus muscles were reapproximated in the midline using 2-0 chromic in a running fashion. The fascia was closed with 0 Vicryl, the subcutaneous layer was closed with 2-0 Vicryl interrupted sutures, and the skin was closed with 3-0 Vicryl in a running fashion. Sponge, lap, and instrument counts were correct x2. The patient was stable at the completion of the procedure and was subsequently transferred to the recovery room in stable condition.
--- NOTE | 2021-06-17 04:47 | Progress Note ---
Spinal Anesthesia Block - Spinal Anesthesia Block Start Time: 02:08 Stop Time: 02:10 Performed by:: NIKI MCNULTY Procedure: Patient IDed, H&P reviewed, all questions and concerns were answered, and consent was signed. Timeout was performed at bedside. Patient in sitting position. Sterile prep and drape was performed. [3] ml of 1% lidocaine skin wheal at L[3]- L [4]. Needle introducer advanced. 25 gauge spinal needle advanced. Clear, free flowing CSF. negative blood, negative paresthesia. Spinal dose given. All needles removed. Patient tolerated procedure.
--- NOTE | 2021-06-17 04:48 | Progress Note ---
Regional Anesthesia Block - Regional Anesthesia Block Start Time: 04:30 Stop Time: 04:40 Performed By:: NIKI MCNULTY Procedure: Patient consented for TAP block for post surgical pain management. Patient identified, monitors placed, and time out performed. TAP identified bilaterally via ultrasound. Skin prepped bilaterally with [chlorhexidine] and [22g stimuplex] needle advanced to the TAP. [Marcaine 0.25% 35ml] injected under ultrasound guidance on the [left] side. [Marcaine 0.25% 35ml] injected under ultrasound guidance on the [right] side. Negative aspiration every 5mL, No change in heart rate or rhythm. Patient tolerated the procedure well. No apparent complications seen.
[2021-06-17] MEDS ORDERED: WITCH HAZEL/ GLYCERIN PAD TP PRN (04:52)
[2021-06-17] MEDS ORDERED: LANOLIN/ZINC/DIMETHICONE (LANSINOH) 7 GM TP PRN (04:52)
[2021-06-17] MEDS ORDERED: ACETAMINOPHEN 325 MG TAB PO PRN (04:52)
[2021-06-17] MEDS ORDERED: NALOXONE 0.4 MG/1 ML INJ IV PRN (04:52)
[2021-06-17] MEDS ORDERED: OXYTOCIN DRIP 30 UNITS/500 ML BAG IV SCH (05:00)
--- NOTE | 2021-06-17 09:02 | Post Anesthesia Evaluation ---
- Post Anesthesia Evaluation Patient Participated: Yes Airway Patent: Yes Stable Respiratory Function: Yes Nausea/Vomiting: No Temp > 96.8F: Yes Pain Manageable: Yes Adequeate Hydration: Yes Anesthesia Complications: No Block Receding Appropriately: Yes Patient on Ventilator: No
--- NOTE | 2021-06-17 10:07 | Progress Note ---
Assessment and Plan A: PP Day #2 Asymptomatic Anemia +UDS P: Follow Routine Orders Continue FeSO4 325mg PO BID S/P [employer] Consult Depo Provera 150mg IM prior to discharge D/C Home today RTO in 6 Weeks Subjective - Subjective Date of service: 06/17/21 Patient reports: appetite normal, voiding normally, pain well controlled, flatus, bowel movement, ambulating normally : doing well, bottle feeding Objective - Vital Signs Latest vital signs: Vital Signs Temp Pulse Resp BP Pulse Ox Pulse Ox 06/17/21 08:44 100 06/17/21 06:13 98.3 F 83 18 145/75 100 06/17/21 05:39 98.4 F 87 19 101/42 100 06/17/21 05:27 90 20 102/52 97 06/17/21 05:16 92 H 16 101/65 100 06/17/21 04:55 82 13 108/51 96 06/17/21 04:40 93 H 12 110/62 99 06/17/21 04:36 90 19 98/37 100 06/17/21 04:31 98.3 F 96 H 16 111/44 98 06/17/21 01:49 110 H 99 06/17/21 01:39 99 H 100 06/17/21 01:37 97 H 139/67 92 06/17/21 01:34 97 H 97 06/17/21 01:29 98 H 98 06/17/21 01:24 95 H 98 06/17/21 01:22 103 H 133/76 06/17/21 01:19 102 H 99 06/17/21 01:14 96 H 100 06/17/21 01:09 104 H 100 06/17/21 01:06 100 H 126/60 06/17/21 01:04 104 H 99 06/17/21 00:59 98 H 99 06/17/21 00:54 98 H 99 06/17/21 00:49 100 H 99 06/17/21 00:44 95 H 99 06/17/21 00:39 97 H 100 06/17/21 00:34 101 H 99 06/17/21 00:29 101 H 99 06/17/21 00:24 96 H 100 06/17/21 00:19 106 H 87 06/16/21 23:48 92 H 99 06/16/21 23:43 98 H 98 06/16/21 23:38 102 H 99 06/16/21 23:34 102 H 124/71 06/16/21 23:33 98.6 F 100 H 100 06/16/21 23:28 105 H 100 06/16/21 23:23 97 H 100 06/16/21 23:19 104 H 129/77 06/16/21 23:18 99 H 100 06/16/21 23:02 93 H 100 06/16/21 22:57 103 H 100 06/16/21 22:52 96 H 100 06/16/21 22:47 101 H 100 06/16/21 22:42 96 H 99 06/16/21 22:37 91 H 100 06/16/21 22:32 102 H 99 06/16/21 22:27 104 H 100 06/16/21 22:22 93 H 100 06/16/21 22:17 95 H 100 06/16/21 22:08 90 139/82 Intake and Output 06/16/21 06/17/21 06/17/21 22:59 06:59 14:59 Intake Total 800 Output Total 1500 Balance -700 Intake: IV 800 Output: Urine 1500 Uretheral (Rodriguez) 500 Other: Weight 111.13 kg 111.13 kg - Exam Breasts: Present: normal Cardiovascular: Present: Regular rate Lungs: Present: Clear to auscultation, Normal air movement Abdomen: Present: normal appearance, soft, normal bowel sounds Uterus: Present: normal, firm, fundal height below umbilicus Extremities: Present: normal - Labs Labs: Abnormal lab results 06/17/21 Range/Units 02:05 Urine WBC (Auto) 18.0 H (0.0-6.0) /HPF U Epithel Cells (Auto) 27.0 H (0-13.0) /HPF
[2021-06-17] MEDS: IBUPROFEN 600 MG TAB PO PRN ×2 (11:48→18:33)
[2021-06-17] MEDS: HYDROcodone/ACETAMINOPHEN 5-325 MG TAB PO PRN ×2 (15:22→21:55)
[2021-06-18] MEDS: IBUPROFEN 600 MG TAB PO PRN ×2 (00:51→10:55)
[2021-06-18] MEDS: HYDROcodone/ACETAMINOPHEN 5-325 MG TAB PO PRN ×2 (06:18→18:46)
--- NOTE | 2021-06-18 09:15 | Progress Note ---
Assessment and Plan A: /postop day 1 S/P primary LTCS. P: Encouraged patient to ambulate. H&H today. Continue routine /postop care. Subjective - Subjective Date of service: 06/18/21 Principal diagnosis: day 1 S/P primary LTCS Patient reports: appetite normal, voiding normally, pain well controlled, flatus, ambulating normally, no dizzy ambulation, no nauseated : doing well Objective - Vital Signs Latest vital signs: Vital Signs Temp Pulse Resp BP BP Pulse Ox Pulse Ox 06/18/21 08:27 88 114/61 06/18/21 07:18 18 06/18/21 06:18 18 06/18/21 01:51 18 06/18/21 01:07 97.4 F L 76 20 111/71 96 06/18/21 00:51 18 06/17/21 22:55 18 06/17/21 21:55 18 06/17/21 21:01 98.4 F 75 20 121/74 98 06/17/21 20:30 100 06/17/21 19:33 18 06/17/21 18:08 98.0 F 73 18 131/78 96 06/17/21 12:45 97.9 F 78 18 139/79 99 Intake and Output 06/17/21 06/18/21 06/18/21 23:59 07:59 15:59 Intake Total 240 240 Output Total 700 Balance -460 240 Intake: Oral 240 240 Output: Urine 700 Indwelling Catheter 200 Void 500 Other: Total, Intake Amount 240 240 Total, Output Amount 400 # Voids Indwelling Catheter 1 - Exam Cardiovascular: Present: Regular rate Lungs: Present: Clear to auscultation Abdomen: Present: normal appearance, soft, normal bowel sounds. Absent: distention, tenderness, guarding, rigidity Uterus: Present: normal, firm, fundal height below umbilicus. Absent: bogginess, tenderness Extremities: Absent: tenderness Incision: Present: dry, intact
[2021-06-18 10:41] LABS: Hematocrit 26.8 % (30.3-42.9); Hemoglobin 8.8 gm/dl (10.1-14.3)
[2021-06-18] MEDS: FERROUS SULFATE 325 MG TAB PO SCH (10:55)
[2021-06-19] MEDS: HYDROcodone/ACETAMINOPHEN 5-325 MG TAB PO PRN ×3 (00:57→21:31)
--- NOTE | 2021-06-19 08:30 | Progress Note ---
Subjective - Subjective Date of service: 06/19/21 Principal diagnosis: day 1 S/P primary LTCS Interval history: Postop day 2 No complaints at bedside Plan for routine postop care and DC home in a.m. Patient reports: appetite normal, voiding normally, pain well controlled, ambulating normally : doing well Objective - Vital Signs Latest vital signs: Vital Signs Temp Pulse Resp BP Pulse Ox Pulse Ox 06/19/21 00:46 98.5 F 80 18 127/73 98 06/18/21 22:45 98 06/18/21 09:00 98 Intake and Output 06/18/21 06/19/21 06/19/21 23:59 07:59 15:59 Intake Total 280 360 Balance 280 360 Intake: Intake, Free Water 280 360 Other: # Voids Void 3 1 - Exam Breasts: Present: deferred Cardiovascular: Present: Regular rate Lungs: Present: Clear to auscultation Abdomen: Present: normal appearance, soft, normal bowel sounds Uterus: Present: normal, firm, fundal height below umbilicus Extremities: Present: normal Deep Tendon Reflex Grade: Normal +2 Incision: Present: normal, dry - Labs Labs: Abnormal lab results 06/18/21 Range/Units 10:00 Hgb 8.8 L (10.1-14.3) gm/dl Hct 26.8 L (30.3-42.9) %
--- NOTE | 2021-06-19 08:32 | Discharge Summary ---
Providers - Providers Date of Admission: 06/17/21 01:02 Date of discharge: 06/20/21 Attending physician: SERGEY SOTO MD Primary care physician: SERGEY SOTO MD Hospitalization Reason for admission: other (Breech presentation) Delivery: Discharge diagnosis: IUP at term delivered Condition at discharge: Stable Disposition: 01 HOME / SELF CARE / HOMELESS Plan - Provider Discharge Summary Activity: no sex for 6 weeks Additional instructions: [] Smoking cessation referral if applicable(refer to patient education folder for contact #) [] Refer to [facility]'s [facility] Booklet Call your doctor immediately for: * Fever > 100.5 * Heavy vaginal bleeding ( >1 pad per hour) * Severe persistent headache * Shortness of breath * Reddened, hot, painful area to leg or breast * Drainage or odor from incision. * Keep incision clean and dry at all times and follow doctor's instructions regarding bathing/showering - Follow up plan Follow up: SERGEY SOTO MD [Primary Care Provider] - 7 Days
[2021-06-19] MEDS: FERROUS SULFATE 325 MG TAB PO SCH (10:16)
[2021-06-20] MEDS: FERROUS SULFATE 325 MG TAB PO SCH (10:19)
[2021-06-20] MEDS: HYDROcodone/ACETAMINOPHEN 5-325 MG TAB PO PRN (10:19)
[2021-06-20 11:33] VITALS: BP 121/73
== END 2021-06-20 13:45 | disposition home or self-care (01) | DRG 765 ==
LOC: TRG 21:29 → APU 21:31 → TRG 06-17 01:01 → LD 06-17 01:02 → APU 06-17 02:29 → OB 06-17 05:52
PROVIDERS: ADMIT Obstetrics & Gynecology Gynecology; ATTEND Obstetrics & Gynecology Gynecology
PROC: 10D00Z1 Extraction of Products of Conception, Low, Open Approach (ICD-10-PCS; principal; 2021-06-17)
DX: O32.1XX0 Maternal care for breech presentation, not applicable or unspecified (principal); O41.03X0 Oligohydramnios, third trimester, not applicable or unspecified; Z3A.38 38 weeks gestation of pregnancy; Z37.0 Single live birth; Z20.822 Contact with and (suspected) exposure to COVID-19; O90.81 Anemia of the puerperium
CPT/HCPCS: 36415; 59025; 76815; 76816; 80307; 81001; 84112; 85014; 85018; 85025; 86592; 86706; 86762; 86850; 86900; 86901; 87086; 87806; 96360; 96372; G0378; J3490; J7121; J0456; J1100; J2370; J2405; J2765; J3475; J7120; U0003